=== PATIENT | male | born 1985 | race Two or more races ===

== ENCOUNTER 2018-07-16 22:39 | Emergency (ER) | payer OTHER ==
[~2018-07-16] VITALS: Ht 177.8 cm; Wt 101.5 kg
--- NOTE | 2018-07-16 22:55 | NUR ---
assessment made. ERP at bedside.
[2018-07-16] MEDS ORDERED: ONDANSETRON 2MG/ML, 2ML IVPush ONE (23:00)
[2018-07-16] MEDS ORDERED: ONDANSETRON 2MG/ML, 2ML ONE (23:05)
[2018-07-16] MEDS ORDERED: FENTANYL PF 100 MCG/2ML ONE (23:05)
[2018-07-16] MEDS: FENTANYL PF 100 MCG/2ML IVPush PRN (23:10)
[2018-07-16 23:12] LABS: BASOPHILS % (AUTO) 0 % (0-1); EOSINOPHILS # (AUTO) 0.08 x10^3/uL (0-0.4); EOSINOPHILS % (AUTO) 1 % (1-7); LYMPHOCYTES # (AUTO) 2.64 x10^3/uL (1-3.4); LYMPHOCYTES % (AUTO) 22 % (22-44); MD NO; MEAN CORPUSCULAR HEMOGLOBIN 31.1 pg (27.5-34.5); MEAN CORPUSCULAR HGB CONC 34.5 g/dL (33.2-36.2); MEAN CORPUSCULAR VOLUME 90.1 fL (81-97); MEAN PLATELET VOLUME 9.8 fL (7.4-10.4); MONOCYTES # (AUTO) 0.49 x10^3/uL (0.2-0.8); MONOCYTES % (AUTO) 4 % (2-9); NEUTROPHILS # (AUTO) 8.72 x10^3/uL (1.8-6.8); NEUTROPHILS % (AUTO) 73 % (42-75); PLATELET COUNT 259 x10^3/uL (130-400); RED BLOOD COUNT 4.92 x10^6/uL (4.38-5.82); RED CELL DISTRIBUTION WIDTH 13.6 % (9.4-14.8)
--- NOTE | 2018-07-16 23:13 | NUR ---
IV placed. blood drawn. Medicated for pain and nausea.
[2018-07-16 23:23] LABS: ALANINE AMINOTRANSFERASE 48 U/L (12-78); ALBUMIN 3.9 g/dL (3.4-5.0); ANION GAP 7 mmol/L (5-15); CALCIUM 9.1 mg/dL (8.5-10.1); CHLORIDE 108 mmol/L (98-107); CREATININE 1.14 mg/dL (0.7-1.3)
[2018-07-16] MEDS ORDERED: METHOCARBAMOL 750 MG TABLET ONE (23:25)
[2018-07-16] MEDS ORDERED: KETOROLAC 30 MG/1 ML ONE (23:25)
[2018-07-16 23:26] LABS: ALKALINE PHOSPHATASE 65 U/L (45-117); TOTAL PROTEIN 7.4 g/dL (6.4-8.2)
--- NOTE | 2018-07-16 23:36 | NUR ---
patient to CT scan.
[2018-07-16 23:39] LABS: BILIRUBIN,TOTAL 0.1 mg/dL (0.2-1.0)
[2018-07-17] MEDS ORDERED: FENTANYL PF 100 MCG/2ML ONE (00:01)
[2018-07-17] MEDS: FENTANYL PF 100 MCG/2ML IVPush PRN (00:05)
--- NOTE | 2018-07-17 00:44 | NUR ---
CT scan and X ray resulted. chart up for MD to re-eval.
[2018-07-17 01:20] VITALS: BP 123/78
[2018-07-17] MEDS ORDERED: OMNIPAQUE 350 MG/ML, 100ML BOTTLE ONE (05:31)
== END 2018-07-17 01:22 | disposition home or self-care (01) ==
LOC: ED 07-17 01:19
DX: G89.11 Acute pain due to trauma (principal); M54.2 Cervicalgia; M25.532 Pain in left wrist; R10.84 Generalized abdominal pain; V49.49XA Driver injured in collision with other motor vehicles in traffic accident, initial encounter; Y93.89 Activity, other specified; Y92.89 Other specified places as the place of occurrence of the external cause; Y99.8 Other external cause status
CPT/HCPCS: 29125; 36415; 71045; 72125; 73110; 74177; 80053; 85025; 93005; 96374; 96375; 96376; 99284; J2405; J3010; Q9967